=== PATIENT | male | born 1965 | race Caucasian/White ===

== ENCOUNTER → 2017-01-17 | Outpatient (CLI) | payer OTHER ==
[~2017-01-17] VITALS: Ht 170.2 cm; Wt 79.5 kg
[~2017-01-17] MED LIST: ALLERGY10 M2 PO; BUPRENORPHIN-N1 EACH SL; DEPAKOTE 250MG250 M1 PO; DEPAKOTE ER500 MG PO; HARVONI 90-4001 EACH PO; IBUPROFEN 800800 M1 PO; NEURONTIN600 MG PO; PROTONIX40 M1 PO; PROZAC20 MG PO; PROZAC40 MG PO; SEROQUEL 25 MG25 M1 PO; SKELAXIN 800 M800 M1 PO; SUBOXONE 8 MG-1 EAC3 SL; TRAZODONE HCL100 MG PO; VISTARIL 25 MG25 M1 PO; VOLTAREN GEL 1100 G2 TOP; XANAX 0.5 MG0.5 MG PO
--- NOTE | ~2017-01-17 | HPC ---
[facility] [place] [address] PAIN MANAGEMENT CONSULTATION Name: JAYY CONNOR Room #: REG AURELIANODago Cuenca#: [id number] Admission: 01/17/17 Attend Phys: Felix Craft DO Discharge: Date of : 61 Report #: [id number] THIS REPORT FOR: //name// CC: CARLTON Craft The patient is a 51-year-old gentleman, being treated for right foot pain, chronic after trauma, chronic pain syndrome requiring complex medication management in a gentleman who has had multiple issues with drug and alcohol habituation. He has been stable on Suboxone 8/2 one a day for some time. He currently is receiving Harvoni for hepatitis C. He is in his first week of therapy, he has 11 more weeks. He trained as a professional laborer [employer] and he is anxious to get through with his hepatitis therapy, so we can move on with gainful employment. He returns to pain clinic today noting pain an 8/10, primarily right foot and some left arm pain (ladder fell on his head in 1999, causing post-concussive syndrome and he broke his left arm in February). We reviewed the fact that opiate medications are being used to provide analgesia adequate to support activities of daily living, not attempting to achieve a specific pain score on the 0-10 Visual Analog Scale. The current opiate medications are providing sufficient analgesia to allow the patient to participate in activities of daily living. The patient is not exhibiting any aberrant behavior suggestive of drug diversion. The patient is not having any adverse reactions to medications. The patient is not suffering from daytime somnolence or mental acuity changes. The patient is managing opiate-induced constipation with appropriate syxx-wnl-jdimxtb agents and dietary considerations. The patient was counseled on concern for caution with operating a motor vehicle while using opiate medications. A physical exam was performed and the patient's functional status was evaluated. All patients with back pain were advised against the bed rest greater than 4 days and were advised to return to normal activities. Pain score assessment was noted and the treatment plan was reviewed with the patient. All current medications, both prescribed and OTC were reviewed and reconciled on the electronic medical record. Tobacco screening was accomplished and smoking cessation was advised when indicated. BMI was noted and diet/exercise modification was recommended for all patients following outside normal parameters. I reviewed with the patient today their responsibilities to safeguard prescription medications, reviewed their responsibility to utilize medications only as prescribed by the physician. They are to seek and receive pain medications only from 1 physician group ( [facility]). They are to use 1 pharmacy and keep the clinic informed if they change pharmacies. Their responsibilities include making followup visits in a timely fashion and to avoid abrupt discontinuation of medication usage. Their responsibilities further include bringing their medications (bottles from the pharmacy with residual [facility] [address] [place] [address] PAIN MANAGEMENT CONSULTATION Name: JAYY CONNOR Room #: REG DANIELE Cuenca#: [id number] Admission: 01/17/17 Attend Phys: Felix Craft DO Discharge: Date of : 61 Report #: [id number] pills) to the visit for possible confirmation of pill counts and the patient understands it is their responsibility to submit to random drug screens to ensure both that the medications prescribed are present, and that no other controlled substances are present. All prescriptions provided today were generated electronically. The patient continue to attend NA meetings. In fact, he was mandated by to continue the NA meetings in order for his Harvoni treatment. After a long discussion with the patient, I have elected to continue him on Suboxone 04/23. I have taken the liberty of writing for 15 tablets or strips, whichever is covered by his insurance. I gave him three prescriptions, each to be released on a 2-week cycle. I will see him back in six for reevaluation. He is continuing to do well, we may consider increasing his prescription to 30 tablets or strips with an 8-week followup cycle. <ELECTRONICALLY SIGNED> By: Felix Craft DO 01/20/17 [id number] Felix Craft DO /nt
[2017-01-17 12:30] VITALS: BP 148/101
== END ==
LOC: PAIN 01-16 07:53
DX: G89.4 Chronic pain syndrome (principal); F17.210 Nicotine dependence, cigarettes, uncomplicated

== ENCOUNTER → 2017-03-14 | Outpatient (CLI) | payer OTHER ==
[~2017-03-14] VITALS: Ht 170.2 cm; Wt 74.4 kg
[~2017-03-14] MED LIST changes: +PANTOPRAZOLE SO40 M1 PO; +VENTOLIN HFA 1818 GM INH
--- NOTE | ~2017-03-14 | HPC ---
[facility] [place] [address] PAIN MANAGEMENT CONSULTATION Name: JAYY CONNOR Room #: REG AURELIANODago Cuenca#: [id number] Admission: 03/14/17 Attend Phys: Felix Craft DO Discharge: Date of : 61 Report #: [id number] THIS REPORT FOR: //name// CC: CARLTON Craft HISTORY OF PRESENT ILLNESS: The patient is a 51-year-old gentleman being treated for right foot chronic pain and complex medication management, history of ethanol and recreational drug abuse. The patient is hepatitis C positive, currently taking a course of Harvoni. He believes he has about 2 weeks left. He states he is feeling better from a general stamina standpoint. I believe it is due to hepatitis C load lowering. He returns to pain clinic today, states he is continuing to attend NA meetings on a regular basis. His last urine drug screen was in November of this year, positive for buprenorphine and other prescribed medications including gabapentin, fluoxetine, quetiapine and ibuprofen. The patient returns to pain clinic today noting pains of 7/10. 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 He is going to start when he completes his Harvoni therapy. We did have a prolonged visit today, from 10:53-11:20, greater than 50% of this 25+ minute visit was spent counseling the patient. He had canceled the appointment yesterday and sounded somewhat inebriated on the phone. This report was related to me by the clinic staff. Today, he does appear lucid, alert and oriented. He claims that he has not had any alcohol for several months. He claims he is continuing to go to the meetings and he tries to go daily. The patient does tell me a curious event that occurred last week, states he was admitted to [facility] for a presyncopal event. He states he had been outside, running errands and got dehydrated. I do not have the medical records from [facility] at this time. It was quite hot this past week, temperature was in the 100s, hence dehydration is not entirely unlikely. PHYSICAL EXAMINATION: Shows 51-year-old gentleman, BMI is 25.7 kilograms per meter squared. Blood pressure is elevated today at 146/100, pulse 86, respirations are 14. Alert and oriented to person, place, and time, judged to be a reasonable historian. Rises from chair using armrest. Nominally antalgic gait favoring the right ankle, limited range of motion in the ankle secondary to pain. Long discussion with the patient today about continuing sobriety in using Suboxone for pain in the right ankle He notes the Suboxone diminishes pain, but it is far from making him pain free. He is pleased with the level of pain relief he gets and his ability to function. He is enthusiastic about starting his job. [address] [address] PAIN MANAGEMENT CONSULTATION Name: JAYY CONNOR Room #: REG DANIELE Cuenca#: [id number] Admission: 03/14/17 Attend Phys: Felix Craft, DO Discharge: Date of : 61 Report #: [id number] We reviewed the fact that opiate medications are being used to provide analgesia adequate to support activities of daily living, not attempting to achieve a specific pain score on the 0-10 Visual Analog Scale. The current opiate medications are providing sufficient analgesia to allow the patient to participate in activities of daily living. The patient is not exhibiting any aberrant behavior suggestive of drug diversion. The patient is not having any adverse reactions to medications. The patient is not suffering from daytime somnolence or mental acuity changes. The patient is managing opiate-induced constipation with appropriate mccl-wzg-gnqhtuz agents and dietary considerations. The patient was counseled on concern for caution with operating a motor vehicle while using opiate medications. A physical exam was performed and the patient's functional status was evaluated. All patients with back pain were advised against the bed rest greater than 4 days and were advised to return to normal activities. Pain score assessment was noted and the treatment plan was reviewed with the patient. All current medications, both prescribed and OTC were reviewed and reconciled on the electronic medical record. Tobacco screening was accomplished and smoking cessation was advised when indicated. BMI was noted and diet/exercise modification was recommended for all patients following outside normal parameters. I reviewed with the patient today their responsibilities to safeguard prescription medications, reviewed their responsibility to utilize medications only as prescribed by the physician. They are to seek and receive pain medications only from 1 physician group ( [facility]). They are to use 1 pharmacy and keep the clinic informed if they change pharmacies. Their responsibilities include making followup visits in a timely fashion and to avoid abrupt discontinuation of medication usage. Their responsibilities further include bringing their medications (bottles from the pharmacy with residual pills) to the visit for possible confirmation of pill counts and the patient understands it is their responsibility to submit to random drug screens to ensure both that the medications prescribed are present, and that no other controlled substances are present. All prescriptions provided today were generated electronically. ASSESSMENT: Symptomatic right foot pain in a gentleman with history of opiate habituation and ethanol habituation requiring complex medication management. RECOMMENDATIONS: Urine drug screen was accomplished today. Unfortunately, it will be several days before we get the results back. For economic reasons, I have continued to write multiple prescriptions for him, I wrote for Suboxone 04/23 15 tablets or strips whatever is covered by his insurance. I gave her that prescription today with a second prescription to release in 2 weeks, the third prescription release in 4 weeks and fourth prescription to release in 6 weeks. [facility] [address] [place] [address] PAIN MANAGEMENT CONSULTATION Name: SHAMIKA CONNORS Room #: REG DANIELE Cuenca#: [id number] Admission: 03/14/17 Attend Phys: Felix Craft DO Discharge: Date of : 61 Report #: [id number] I will see him back in 8 weeks total for reevaluation. Urine drug screen should be back well before then. Discharged in good and stable condition. By: [id number] Felix Craft DO /nt
[2017-03-14 10:45] VITALS: BP 146/100
== END | disposition home or self-care (01) ==
LOC: PAIN 03-13 06:38
DX: M25.571 Pain in right ankle and joints of right foot (principal); G89.29 Other chronic pain; B19.20 Unspecified viral hepatitis C without hepatic coma; F41.9 Anxiety disorder, unspecified; F11.20 Opioid dependence, uncomplicated; F17.210 Nicotine dependence, cigarettes, uncomplicated; Z98.890 Other specified postprocedural states; Z91.040 Latex allergy status; Z88.8 Allergy status to other drugs, medicaments and biological substances

== ENCOUNTER → 2017-05-05 | Outpatient (CLI) | payer OTHER ==
[~2017-05-05] VITALS: Ht 170.2 cm; Wt 71.2 kg
--- NOTE | ~2017-05-05 | HPC ---
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 Last seen in the pain clinic on 03/14/2017. Continue Suboxone 04/23 one a day. I typically given a prescription for 15 either film strips or tablets with releases today, 2 weeks, 4 weeks and 6 weeks and see him in 8-week intervals. Last buccal swab 03/14/2017 is positive for buprenorphine and no alcohol. He has had trouble with ethanol habituation and drug abuse in the past. The patient is continuing with near daily AA meetings. In fact, he is living with one of his AA sponsors, other sponsor . He states that they are keeping each other sober. He had a job when I last saw him, but it took 2-hour bus ride to get to work. He ultimately quit that job. 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 He had completed training at a [employer] in [place]. 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 He ultimately understands it is important that he simply be at least engaged with some employment. PHYSICAL EXAMINATION: Otherwise unchanged, 51-year-old gentleman, BMI is 24.6 kg/m2. He tells me following his Harvoni treatment, his hepatitis serum antigen level was quite low. In fact, he tells me that they are fast forwarding his Harvoni treatment end date. Primary pain, low back and right foot, he rates it 7 on a VAS. Status post radical neck dissection on 11/24/2003 with prior trauma, relatively stable from that standpoint. He has some paresthesia in the left hand and in 2014, he had fractured the proximal humerus head, ORIF this and had done well. His left upper extremity paresthesia, however, is a little problematic. Has a positive Tinel's on the ulnar aspect, but he has more of a radicular symptomatology. Does have a modestly positive Lhermitte's. I did write for an EMG, the left upper extremity. 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 We reviewed the fact that opiate medications are being used to provide analgesia adequate to support activities of daily living, not attempting to achieve a specific pain score on the 0-10 Visual Analog Scale. The current opiate medications are providing sufficient analgesia to allow the patient to participate in activities of daily living. The patient is not exhibiting any [address] [address] PAIN MANAGEMENT CONSULTATION Name: JAYY CONNOR Room #: REG DANIELE Cuenca#: [id number] Admission: 05/05/17 Attend Phys: Felix Craft DO Discharge: Date of : 61 Report #: [id number] aberrant behavior suggestive of drug diversion. The patient is not having any adverse reactions to medications. The patient is not suffering from daytime somnolence or mental acuity changes. The patient is managing opiate-induced constipation with appropriate tpys-ydd-stgdduq agents and dietary considerations. The patient was counseled on concern for caution with operating a motor vehicle while using opiate medications. A physical exam was performed and the patient's functional status was evaluated. All patients with back pain were advised against the bed rest greater than 4 days and were advised to return to normal activities. Pain score assessment was noted and the treatment plan was reviewed with the patient. All current medications, both prescribed and OTC were reviewed and reconciled on the electronic medical record. Tobacco screening was accomplished and smoking cessation was advised when indicated. BMI was noted and diet/exercise modification was recommended for all patients following outside normal parameters. I reviewed with the patient today their responsibilities to safeguard prescription medications, reviewed their responsibility to utilize medications only as prescribed by the physician. They are to seek and receive pain medications only from 1 physician group ( [facility]). They are to use 1 pharmacy and keep the clinic informed if they change pharmacies. Their responsibilities include making followup visits in a timely fashion and to avoid abrupt discontinuation of medication usage. Their responsibilities further include bringing their medications (bottles from the pharmacy with residual pills) to the visit for possible confirmation of pill counts and the patient understands it is their responsibility to submit to random drug screens to ensure both that the medications prescribed are present, and that no other controlled substances are present. All prescriptions provided today were generated electronically. Ultimately, I would like to continue his Suboxone unchanged. Follow up in 8 weeks for reevaluation. By: [id number] Felix Craft DO /nt
[2017-05-05 14:02] VITALS: BP 123/83
== END ==
LOC: PAIN 07:15
DX: M25.571 Pain in right ankle and joints of right foot (principal); M47.899 Other spondylosis, site unspecified; F17.210 Nicotine dependence, cigarettes, uncomplicated; Z85.21 Personal history of malignant neoplasm of larynx; Z88.8 Allergy status to other drugs, medicaments and biological substances; Z91.040 Latex allergy status; Z79.899 Other long term (current) drug therapy; Z79.891 Long term (current) use of opiate analgesic

== ENCOUNTER → 2017-06-27 | Outpatient (CLI) | payer OTHER ==
[~2017-06-27] VITALS: Ht 170.2 cm; Wt 69.0 kg
[~2017-06-27] MED LIST changes: +FOLTX TABLET1 EAC1 PO
--- NOTE | ~2017-06-27 | HPC ---
[facility] [place] [address] PAIN MANAGEMENT CONSULTATION Name: JAYY CONNOR Room #: REG DANIELE Bang#: [id number] Admission: 06/27/17 Attend Phys: Felix Craft DO Discharge: Date of : 61 Report #: [id number] THIS REPORT FOR: //name// CC: CARLTON Craft DATE OF SERVICE: 06/27/2017 DATE OF SERVICE: 06/27/2017 HISTORY OF PRESENT ILLNESS: The patient is a 51-year-old gentleman long known to the pain clinic, being treated for chronic neck pain, status post glossopharyngeal cancer and radical neck resection, neuropathic pain requiring high risk complex medication management with comorbidity of right ankle pain. Last visit was 05/05/2017. The patient continues to attend NA meetings. Continues to use Suboxone 8/2 one a day. I have given him 2, 4 and 6-week release prescriptions being seen on a q.8 week basis. Last urine drug screen on 03/14/2017 was positive for his current medications. The patient returns to pain clinic today noting he has completed his hepatitis C course through and notes that he has completed his Harvoni treatment for hepatitis C at . His last clinic followup at noted no hepatitis load appreciable. He continues to smoke and was counseled regarding same. Notes pain medications are helpful allowing him to participate in activities of daily living, though notes his pain remains about 7 on VAS. Primary pain is in neck, back and right foot. PHYSICAL EXAMINATION: GENERAL: Otherwise unchanged. A 51-year-old gentleman, BMI is 23.8 kilograms per meter squared, modest cosmetic defect in his neck status post the radical neck dissection. VITAL SIGNS: Blood pressure 147/95, pulse 85, respirations 16. MUSCULOSKELETAL: Rises from chair using armrest nominally antalgic gait, though notes his right ankle is doing pretty good at this point. NEUROLOGIC: Alert and oriented to person, place and time, judged to be a reasonable historian. We reviewed the fact that opiate medications are being used to provide analgesia adequate to support activities of daily living, not attempting to achieve a specific pain score on the 0-10 Visual Analog Scale. The current opiate medications are providing sufficient analgesia to allow the patient to participate in activities of daily living. The patient is not exhibiting any aberrant behavior suggestive of drug diversion. The patient is not having any adverse reactions to medications. The patient is not suffering from daytime [address] [address] PAIN MANAGEMENT CONSULTATION Name: JAYY CONNOR [id number] Admission: 06/27/17 Attend Phys: Felix Craft DO Discharge: Date of : 61 Report #: [id number] somnolence or mental acuity changes. The patient is managing opiate-induced constipation with appropriate yudl-abh-ricqibj agents and dietary considerations. The patient was counseled on concern for caution with operating a motor vehicle while using opiate medications. A physical exam was performed and the patient's functional status was evaluated. All patients with back pain were advised against the bed rest greater than 4 days and were advised to return to normal activities. Pain score assessment was noted and the treatment plan was reviewed with the patient. All current medications, both prescribed and OTC were reviewed and reconciled on the electronic medical record. Tobacco screening was accomplished and smoking cessation was advised when indicated. BMI was noted and diet/exercise modification was recommended for all patients following outside normal parameters. I reviewed with the patient today their responsibilities to safeguard prescription medications, reviewed their responsibility to utilize medications only as prescribed by the physician. They are to seek and receive pain medications only from 1 physician group ( [facility]). They are to use 1 pharmacy and keep the clinic informed if they change pharmacies. Their responsibilities include making followup visits in a timely fashion and to avoid abrupt discontinuation of medication usage. Their responsibilities further include bringing their medications (bottles from the pharmacy with residual pills) to the visit for possible confirmation of pill counts and the patient understands it is their responsibility to submit to random drug screens to ensure both that the medications prescribed are present, and that no other controlled substances are present. All prescriptions provided today were generated electronically. The patient continues to attend NA meetings near daily. 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 I have given the patient another 2 months of his current medication, Suboxone 8/2 one a day in 2-week prescriptions. Follow up in 2 months for reevaluation, earlier if needed. By: [id number] Felix Craft DO /nt
[2017-06-27 11:01] VITALS: BP 147/95
== END | disposition home or self-care (01) ==
LOC: PAIN 07:22
DX: M54.2 Cervicalgia (principal); Z85.818 Personal history of malignant neoplasm of other sites of lip, oral cavity, and pharynx; G62.9 Polyneuropathy, unspecified; F17.210 Nicotine dependence, cigarettes, uncomplicated

== ENCOUNTER → 2017-09-01 | Outpatient (CLI) | payer OTHER ==
[~2017-09-01] VITALS: Ht 170.2 cm; Wt 72.6 kg
--- NOTE | ~2017-09-01 | HPC ---
[facility] [place] [address] PAIN MANAGEMENT CONSULTATION Name: NIKOLASJAYY CAROL [facility] #: [id number] Admission: 09/01/17 Attend Phys: Felix Craft DO Discharge: Date of : 61 Report #: [id number] THIS REPORT FOR: //name// CC: CARLTON Craft The patient is a 51-year-old gentleman being treated for chronic pain syndrome, neuropathic pain, status post radical neck dissection for glossopharyngeal cancer, chronic right ankle pain requiring high risk complex medication management. The patient is a very unfortunate gentleman. He has struggled with sobriety. Since we saw him last, he had a followup appointment 08/26/2017. Through a variety of issues, he missed that appointment, he did run out of his Suboxone. The patient states he has been drank yesterday due to the pain. He does smell of alcohol. There are notes in the chart from Debbie Weaver stating that the patient has been intoxicated on multiple occasions. He ended up in [facility], overdosed on alcohol and Xanax, which is prescribed by another physician. He returns to pain clinic today noting pain is a "9" on VAS. Pain is primarily neck, shoulder and right foot. PHYSICAL EXAMINATION: Otherwise, shows a 51-year-old gentleman, BMI is 25.1 kg/m2. Vital signs are stable. Cosmetic defect, status post radical neck dissection, pain in the neck and shoulder. He smells of ethanol today. He is rating his pain a 9 on VAS. Vital signs are otherwise stable. He does have pain in the right ankle. We have done a subtalar injection in the past with some efficacy. He states he has been through withdrawal for the last few days. ASSESSMENT: Chronic pain syndrome requiring high risk complex medication management in a gentleman with significant habituation issues, right ankle pain, neck pain, neuropathic component, status post radical neck dissection for glossopharyngeal cancer who continues to smoke. RECOMMENDATION: 1. We will renew Suboxone 8/2 b.i.d., dispense 15 tablets, release 2 weeks for 14 tablets, follow up in 1 month. 2. Right subtalar joint injection. 3. IM Toradol injection today 30 mg. PROCEDURE NOTE: After written informed consent was obtained, the patient was placed in supine position. Skin overlying the right ankle was cleansed with alcohol. A 25-gauge needle was placed medial to the anterior tibialis tendon and lateral to the medial malleolus, inserted in a posterior inferior angle into the right subtalar joint. Negative aspiration was accomplished. A [address] [address] PAIN MANAGEMENT CONSULTATION Name: JAYY CONNOR Room #: REG DANIELE Cuenca#: [id number] Admission: 09/01/17 Attend Phys: Felix Craft DO Discharge: Date of : 61 Report #: [id number] triamcinolone plus 3 mL of 0.5% preservative-free bupivacaine was injected into and around the joint. Needle was removed, the area was cleansed, Band-Aid was applied. The patient was then given 30 mg IM Toradol, monitored for an appropriate period of time, discharged in good and stable condition. Follow up in 1 month. By: [id number] Felix Craft DO /nt
[2017-09-01 12:59] VITALS: BP 121/77
== END | disposition home or self-care (01) ==
LOC: PAIN 08-26 06:53
DX: M25.571 Pain in right ankle and joints of right foot (principal); G89.4 Chronic pain syndrome; Z98.890 Other specified postprocedural states; Z85.818 Personal history of malignant neoplasm of other sites of lip, oral cavity, and pharynx; F17.210 Nicotine dependence, cigarettes, uncomplicated; Z79.891 Long term (current) use of opiate analgesic; Z91.040 Latex allergy status; Z88.6 Allergy status to analgesic agent; Z88.8 Allergy status to other drugs, medicaments and biological substances

== ENCOUNTER → 2017-09-29 | Outpatient (CLI) | payer OTHER ==
[~2017-09-29] VITALS: Ht 170.2 cm; Wt 74.1 kg
[~2017-09-29] MED LIST changes: +AUGMENTIN 875-1 EACH PO; +CARDIZEM CD240 MG PO; +MUCINEX600 MG PO; +SUBOXONE 2 MG-1 EAC1 SUBLING; +SUBOXONE 4 MG-1 EACH TRANSDERM
--- NOTE | ~2017-09-29 | HPC ---
[facility] [place] [address] PAIN MANAGEMENT CONSULTATION Name: JAYY CONNOR Room #: REG [facility] PonceMikelOle.#: [id number] Admission: 09/29/17 Attend Phys: Felix Craft DO Discharge: Date of : 61 Report #: [id number] THIS REPORT FOR: //name// CC: CARLTON Craft The patient is a very unfortunate 51-year-old gentleman being treated for chronic pain syndrome, status post glossopharyngeal cancer, neuropathic pain requiring high risk complex medication management. The patient has trained as a chef french. He has struggled with sobriety. Last seen in pain clinic 09/01/2017. I did a subtalar injection at that time (right ankle) and continued the patient on Suboxone 04/23 b.i.d. I gave him 2 prescriptions, 1 for 15 tablets and 1 for 14 tablets (to be released in 2 weeks). Returns to pain clinic today. He is to continue to take medication as directed, 1 tablet daily. Notes his subjective pain score 4 on a VAS. He is trying to wean smoking down to 4 packs of cigarettes a week. He had been smoking at least 1 pack a day. The patient has struggled with ethanol sobriety as well, states that he did have a single beer last week. He has continued to attend AA meetings. Last meeting was 3 days ago. Physical exam is unchanged, 51-year-old gentleman, BMI is 25.6 kilograms per meter squared. Subjective pain score is 6 on a VAS. Vital signs stable as noted in the EMR. Does have subjective paresthesia of the right temporal area. I discern no obvious pathology here. Again, concerned for recurrence of his glossopharyngeal cancer and compromise of craniofacial nerves though this may simply be from a prior trauma, the patient states that he may have fallen last week. The fact that he is unaware of having fallen does of course raise concern for the patient's ongoing sobriety. We elected to repeat a buccal drug swab today. It should be positive for Suboxone as the sole opiate. There should be no ethanol metabolites. We reviewed the fact that opiate medications are being used to provide analgesia adequate to support activities of daily living, not attempting to achieve a specific pain score on the 0-10 Visual Analog Scale. The current opiate medications are providing sufficient analgesia to allow the patient to participate in activities of daily living. The patient is not exhibiting any aberrant behavior suggestive of drug diversion. The patient is not having any adverse reactions to medications. The patient is not suffering from daytime somnolence or mental acuity changes. The patient is managing opiate-induced constipation with appropriate secx-nhc-nycxgxy agents and dietary considerations. The patient was counseled on concern for caution with operating a motor vehicle while using opiate medications. A physical exam was performed and the patient's functional status was evaluated. All patients with back pain were advised against the bed rest greater than 4 days and were advised to return to normal activities. Pain score assessment was [address] [address] PAIN MANAGEMENT CONSULTATION Name: JAYY CONNOR Room #: REG DANIELE Cuenca#: [id number] Admission: 09/29/17 Attend Phys: Felix Craft DO Discharge: Date of : 61 Report #: [id number] noted and the treatment plan was reviewed with the patient. All current medications, both prescribed and OTC were reviewed and reconciled on the electronic medical record. Tobacco screening was accomplished and smoking cessation was advised when indicated. BMI was noted and diet/exercise modification was recommended for all patients following outside normal parameters. I reviewed with the patient today their responsibilities to safeguard prescription medications, reviewed their responsibility to utilize medications only as prescribed by the physician. They are to seek and receive pain medications only from 1 physician group ( [facility]). They are to use 1 pharmacy and keep the clinic informed if they change pharmacies. Their responsibilities include making followup visits in a timely fashion and to avoid abrupt discontinuation of medication usage. Their responsibilities further include bringing their medications (bottles from the pharmacy with residual pills) to the visit for possible confirmation of pill counts and the patient understands it is their responsibility to submit to random drug screens to ensure both that the medications prescribed are present, and that no other controlled substances are present. All prescriptions provided today were generated electronically. I did renew Suboxone today, 4/1 mg tablet to take 1-1/2 tablets or strips a day for 10 days, dispensed 15 tablets or strips. Second prescription to be released in 10 days for buprenorphine (Suboxone 4/1) film or tablet okay, 1 daily, dispensed 20 units again to release in 10 days. We will see him back in 4 weeks for reevaluation. Hopefully, will have weaned from 8 to 6 to 4 mg of buprenorphine. The patient requests trying to wean off all opiate analgesics. At next visit we will likely write for a short course of Suboxone 2 mg 15 to 20 units with followup in 30 days, buccal swab should be negative at that time for all opiate analgesics. <ELECTRONICALLY SIGNED> By: Felix Craft DO 10/01/17 0721 [id number] Felix Craft DO /nt
[2017-09-29 09:49] VITALS: BP 122/81
== END ==
LOC: PAIN 06:51
DX: G89.4 Chronic pain syndrome (principal); M79.2 Neuralgia and neuritis, unspecified; Z85.21 Personal history of malignant neoplasm of larynx; Z79.899 Other long term (current) drug therapy

== ENCOUNTER → 2017-10-27 | Outpatient (CLI) | payer OTHER ==
[~2017-10-27] VITALS: Ht 170.2 cm; Wt 73.6 kg
--- NOTE | ~2017-10-27 | HPC ---
[facility] [place] [address] PAIN MANAGEMENT CONSULTATION Name: JAYY CONNOR Room #: REG [facility] MMikel.#: [id number] Admission: 10/27/17 Attend Phys: Felix Craft DO Discharge: Date of : 61 Report #: [id number] THIS REPORT FOR: //name// CC: CARLTON Craft DATE OF SERVICE: 10/27/2017 The patient is an unfortunate 51-year-old gentleman long treated for chronic pain requiring complex medication management, history of glossopharyngeal cancer, neuropathic pain. He has a history of right ankle and foot pain secondary to a prior trauma. He has had trouble with alcohol and narcotic habituation and struggled with sobriety. Last seen in the pain clinic 09/29/2017. Buccal swab at that time was positive for gabapentin and nicotine as well as ethanol. The patient had run out of buprenorphine. I had agreed reluctantly to continue Suboxone wean. Started the patient on Suboxone 4/1 tablets 1-1/2 a day for 10 days, dispense 15 strips or tablets. Second prescription to be released 2 days subsequent was for Suboxone 4/1 one a day. He presents to pain clinic today for followup. He is down to 4 mg of Suboxone a day. Notes pain is 6 on VAS, pain is low back, bilateral foot, right greater than left. exacerbated with movement. PHYSICAL EXAMINATION: Unchanged, 51-year-old gentleman, BMI is 25.4 kilograms per meter squared. Blood pressure 128/80, pulse 85, respirations 16. Cranial nerves 2-12 are grossly intact. He does have cosmetic defect compatible with prior glossopharyngeal cancer surgery. BMI is 25.4 kilograms per meter squared. Subjective pain 03/01. States he had fallen in the past 3 months when he had had pneumonia. Gait is modestly antalgic. Pain again primarily in that right ankle and neck. RECOMMENDATIONS: Long discussion with the patient about therapeutic options. We elected to continue weaning Suboxone. I wrote for 20 Suboxone 2/0.5 strips to use 1 daily. A second prescription to be released in 20 days for 5 Suboxone 2/0.5 strips to be used every other day. In 30 days, he should be off of all Suboxone. We talked about ongoing pain issues. I pointed the pain is simply a part of life. He is unable to manage opiate analgesics without continuing to escalate his dose. He continues to drink intermittently. He admits to drinking "a few beers" last night, watching the Super Bowl. I told him I will help him wean off of opiates presently and I will not see him further. [address] [address] PAIN MANAGEMENT CONSULTATION Name: JAYY CONNOR Room #: REG DANIELE Cuenca#: [id number] Admission: 10/27/17 Attend Phys: Felix Craft DO Discharge: Date of : 61 Report #: [id number] Discharged in good and stable condition after moderately prolonged visit primarily spent counseling the patient and encouraging sobriety. <ELECTRONICALLY SIGNED> By: Felix Craft DO 10/29/17 1417 [id number] [id number] Felix Craft DO /nt
[2017-10-27 10:44] VITALS: BP 128/80
== END ==
LOC: PAIN 06:53
DX: G89.29 Other chronic pain (principal); M25.571 Pain in right ankle and joints of right foot; Z79.899 Other long term (current) drug therapy